=== PATIENT | male | born 1940 | race Caucasian/White ===

== ENCOUNTER → 2017-01-15 08:27 | Outpatient (CLI) | payer MEDICARE ==
[2011-03-15 06:05] VITALS: BMI 20.7
[2017-01-15 09:03] LABS: BASOPHILS 0.6 % (0-2); HEMATOCRIT 41.3 % (42.0-54.0); HEMOGLOBIN 13.6 g/dL (13.5-17.5); IMMATURE GRANULOCYTES 0.5 % (0-5); LYMPHOCYTES 40.7 % (15-50); MCH 30.2 pg (26.0-34.0); MCHC 32.9 g/dL (31.0-37.0); MCV 91.6 fL (80.0-100.0); MEAN PLATELET VOLUME 10.2 fL (7.4-10.4); MONOCYTES 6.9 % (2-11); NEUTROPHILS 47.3 % (40-80); PLATELET COUNT 216 10x3/uL (130-400); RBC 4.51 10x6/uL (4.20-6.10); RDW 13.8 % (11.5-14.5); WBC 6.5 10x3/uL (4.8-10.8)
[2017-01-15 09:33] LABS: ALBUMIN 3.9 g/dL (3.4-5.0); ALKALINE PHOSPHATASE 56 U/L (46-116); ALT (SGPT) 25 U/L (10-68); BILIRUBIN - TOTAL 0.37 mg/dL (0.2-1.3); CALC OSMOLALITY 276 mosm/kg (275-300); CALCIUM 9.2 mg/dL (8.5-10.1); CARBON DIOXIDE 31.4 mmol/L (21.0-32.0); CHLORIDE - SERUM 102 mmol/L (98-107); CHOL - HDL RATIO 2.1 ratio (2.3-4.9); CHOLESTEROL, TOTAL 177 mg/dL (0-200); CREATININE - SERUM 0.8 mg/dL (0.6-1.3); GLUCOSE 100 mg/dL (74-106); HDL CHOLESTEROL 83 mg/dL (32-96); LDL CHOLESTEROL 84 mg/dL (0-100); POTASSIUM - SERUM 4.2 mmol/L (3.5-5.1); PROTEIN - SERUM 7.1 g/dL (6.4-8.2); SODIUM 138 mmol/L (136-145); THYROID STIMULATING HORMONE 0.79 uIU/mL (0.36-3.74); TRIGLYCERIDE 53 mg/dL (30-200); UREA NITROGEN 16 mg/dL (7-18); eGFR NON AFRICAN AMERICAN > 90 mL/min (90-120)
== END | disposition home or self-care (01) ==
LOC: D.LAB 08:27
PROVIDERS: Family Medicine
DX: E53.9 Vitamin B deficiency, unspecified (principal); E78.5 Hyperlipidemia, unspecified

== ENCOUNTER → 2017-08-16 07:17 | Outpatient (CLI) | payer MEDICARE ==
[2011-03-15 06:05] VITALS: BMI 20.7
== END | disposition home or self-care (01) ==
LOC: D.LAB 07:17
DX: C61 Malignant neoplasm of prostate (principal); Z00.01 Encounter for general adult medical examination with abnormal findings; E53.8 Deficiency of other specified B group vitamins

== ENCOUNTER → 2018-09-17 12:57 | Outpatient (CLI) | payer MEDICARE ==
[2011-03-15 06:05] VITALS: BMI 20.7
[~2018-09-17 12:57] MED LIST: FLOMAX0.4 MG; HYDROCODON-ACE1 EAC7 PO
[2018-09-17 13:37] LABS: BASOPHILS 0.4 % (0-2); EOSINOPHILS 1.3 % (0-7); HEMATOCRIT 39.7 % (42.0-54.0); HEMOGLOBIN 12.8 g/dL (13.5-17.5); IMMATURE GRANULOCYTES 0.5 % (0-5); LYMPHOCYTES 39.1 % (15-50); MCH 29.4 pg (26.0-34.0); MCHC 32.2 g/dL (31.0-37.0); MCV 91.1 fL (80.0-100.0); MEAN PLATELET VOLUME 10.1 fL (7.4-10.4); MONOCYTES 6.2 % (2-11); NEUTROPHILS 52.5 % (40-80); PLATELET COUNT 219 10x3/uL (130-400); RBC 4.36 10x6/uL (4.20-6.10); WBC 5.5 10x3/uL (4.8-10.8)
[2018-09-17 14:23] LABS: ALBUMIN 4.1 g/dL (3.4-5.0); ALKALINE PHOSPHATASE 56 U/L (46-116); ALT (SGPT) 26 U/L (10-68); BILIRUBIN - TOTAL 0.65 mg/dL (0.2-1.3); CALC OSMOLALITY 279 mosm/kg (275-300); CALCIUM 9.3 mg/dL (8.5-10.1); CARBON DIOXIDE 30.9 mmol/L (21.0-32.0); CHLORIDE - SERUM 104 mmol/L (98-107); CREATININE - SERUM 0.8 mg/dL (0.6-1.3); GLUCOSE 92 mg/dL (74-106); MAGNESIUM - SERUM 2.4 mg/dL (1.8-2.4); PHOSPHOROUS 4.6 mg/dL (2.5-4.9); POTASSIUM - SERUM 4.9 mmol/L (3.5-5.1); PROTEIN - SERUM 7.1 g/dL (6.4-8.2); SODIUM 140 mmol/L (136-145); THYROID STIMULATING HORMONE 0.93 uIU/mL (0.36-3.74); UREA NITROGEN 16 mg/dL (7-18); eGFR NON AFRICAN AMERICAN > 90 mL/min (90-120)
== END | disposition home or self-care (01) ==
LOC: D.LAB 12:57
PROVIDERS: ATTEND Family Medicine
DX: C61 Malignant neoplasm of prostate (principal); R20.9 Unspecified disturbances of skin sensation; I95.89 Other hypotension; G25.81 Restless legs syndrome

== ENCOUNTER 2018-09-19 20:09 | Emergency (ER) | payer MEDICARE ==
[~2018-09-19] VITALS: Ht 175.3 cm; Wt 65.5 kg
[2018-09-19 20:18] VITALS: Ht 175.3 cm; Wt 65.5 kg
[2018-09-19] MEDS ORDERED: FLOMAX0.4 MG (20:19)
[2018-09-19] MEDS ORDERED: HYDROCODON-ACE1 EAC7 PO (20:59)
[2018-09-20 01:17] VITALS: BP 118/64
== END 2018-09-19 21:25 | disposition home or self-care (01) ==
LOC: D.ER 20:09
DX: S93.401A Sprain of unspecified ligament of right ankle, initial encounter (principal); W18.31XA Fall on same level due to stepping on an object, initial encounter; Y93.89 Activity, other specified; Y92.89 Other specified places as the place of occurrence of the external cause

== ENCOUNTER → 2018-10-30 10:46 | Outpatient (CLI) | payer MEDICARE ==
[2018-09-19 20:18] VITALS: BMI 21.3
== END | disposition home or self-care (01) ==
LOC: D.LAB 10:46
PROVIDERS: ATTEND Family Medicine
DX: E53.8 Deficiency of other specified B group vitamins (principal)

== ENCOUNTER → 2018-12-26 10:49 | Outpatient (CLI) | payer MEDICARE ==
[2018-09-19 20:18] VITALS: BMI 21.3
[2018-12-26 11:12] LABS: BASOPHILS 0.6 % (0-2); EOSINOPHILS 1.2 % (0-7); HEMATOCRIT 40.6 % (42.0-54.0); HEMOGLOBIN 13.1 g/dL (13.5-17.5); IMMATURE GRANULOCYTES 0.4 % (0-5); LYMPHOCYTES 35.8 % (15-50); MCH 30.5 pg (26.0-34.0); MCHC 32.3 g/dL (31.0-37.0); MCV 94.6 fL (80.0-100.0); MEAN PLATELET VOLUME 10.7 fL (7.4-10.4); MONOCYTES 7.1 % (2-11); NEUTROPHILS 54.9 % (40-80); PLATELET COUNT 245 10x3/uL (130-400); RBC 4.29 10x6/uL (4.20-6.10); RDW 14.2 % (11.5-14.5); WBC 4.9 10x3/uL (4.8-10.8)
== END | disposition home or self-care (01) ==
LOC: D.LAB 10:49
PROVIDERS: ATTEND Family Medicine
DX: D64.9 Anemia, unspecified (principal); E53.8 Deficiency of other specified B group vitamins

== ENCOUNTER → 2019-06-01 11:31 | Outpatient (CLI) | payer MEDICARE ==
[2018-09-19 20:18] VITALS: BMI 21.3
== END | disposition home or self-care (01) ==
LOC: D.LAB 11:31
PROVIDERS: ATTEND Family Medicine
DX: E53.8 Deficiency of other specified B group vitamins (principal)

== ENCOUNTER → 2019-08-14 16:38 | Outpatient (CLI) | payer MEDICARE ==
[2018-09-19 20:18] VITALS: BMI 21.3
== END | disposition home or self-care (01) ==
LOC: D.LAB 16:38
PROVIDERS: ATTEND Family Medicine
DX: C61 Malignant neoplasm of prostate (principal)

== ENCOUNTER → 2019-09-17 11:02 | Outpatient (CLI) | payer MEDICARE ==
[2018-09-19 20:18] VITALS: BMI 21.3
== END | disposition home or self-care (01) ==
LOC: D.LAB 11:02
PROVIDERS: ATTEND Family Medicine
DX: C61 Malignant neoplasm of prostate (principal)

== ENCOUNTER → 2019-10-06 13:48 | Outpatient (CLI) | payer MEDICARE ==
[2018-09-19 20:18] VITALS: BMI 21.3
[2019-10-06 15:43] LABS: HEMATOCRIT 38.8 % (42.0-54.0); HEMOGLOBIN 12.3 g/dL (13.5-17.5); MCH 29.4 pg (26.0-34.0); MCHC 31.7 g/dL (31.0-37.0); MCV 92.8 fL (80.0-100.0); MEAN PLATELET VOLUME 11.6 fL (7.4-10.4); PLATELET COUNT 217 10x3/uL (130-400); RBC 4.18 10x6/uL (4.20-6.10); WBC 4.4 10x3/uL (4.8-10.8)
[2019-10-06 16:36] LABS: ALBUMIN 3.6 g/dL (3.4-5.0); ALKALINE PHOSPHATASE 41 U/L (30-120); ALT (SGPT) 20 U/L (10-68); BILIRUBIN - TOTAL 0.42 mg/dL (0.2-1.3); CALC OSMOLALITY 273 mosm/kg (275-300); CALCIUM 9.1 mg/dL (8.5-10.1); CARBON DIOXIDE 33.8 mmol/L (21.0-32.0); CHLORIDE - SERUM 101 mmol/L (98-107); CHOL - HDL RATIO 2.2 ratio (2.3-4.9); CHOLESTEROL, TOTAL 145 mg/dL (0-200); CREATININE - SERUM 0.8 mg/dL (0.6-1.3); GLUCOSE 73 mg/dL (74-106); HDL CHOLESTEROL 65 mg/dL (32-96); LDL CHOLESTEROL 72 mg/dL (0-100); LDL-HDL RATIO 1.1 ratio (1.5-3.5); POTASSIUM - SERUM 4.6 mmol/L (3.5-5.1); PROTEIN - SERUM 6.4 g/dL (6.4-8.2); SODIUM 137 mmol/L (136-145); THYROID STIMULATING HORMONE 1.75 uIU/mL (0.36-3.74); TRIGLYCERIDE 43 mg/dL (30-200); UREA NITROGEN 14 mg/dL (7-18); eGFR NON AFRICAN AMERICAN > 90 mL/min (90-120)
[2019-10-06 18:33] LABS: EOSINOPHILS 6 % (0-7); LYMPHOCYTES 49 % (15-50); MONOCYTES 3 % (2-11); NEUTROPHILS 42 % (40-80); PLATELET ESTIMATE NORMAL
== END | disposition home or self-care (01) ==
LOC: D.LABREF 13:48 → D.CT 13:48
PROVIDERS: ATTEND Family Medicine
DX: G31.84 Mild cognitive impairment of uncertain or unknown etiology (principal); C61 Malignant neoplasm of prostate; R53.1 Weakness; Z00.00 Encounter for general adult medical examination without abnormal findings; R53.83 Other fatigue; E53.8 Deficiency of other specified B group vitamins